=== PATIENT | female | born 1995 | race Caucasian/White ===

== ENCOUNTER 2021-05-17 13:02 | Emergency (ER) | payer OTHER ==
--- OUTSIDE RECORDS SUMMARY | 2021-05-17 13:05 | XMS REPORT | Continuity of Care Document ---
:1995 Author Organization [facility] t Address [facility] [place] [address] Care Team Providers Name Role Phone Pcp, Does Not Have A Primary Care Physician Only, Db Test Attending Clinician Unavailable Taiwo Siegel Attending Clinician Taiwo GRANDA Attending Clinician Unavailable FISH Attending Clinician Unavailable Tenzin DEL ROSARIO Attending Clinician Doctor Unassigned, Name Attending Clinician Unavailable Pcp, Does Not Have A Attending Clinician Provider Temebonie Attending Clinician Unavailable Kimberly Antonio Attending Clinician , Room Attending Clinician Unavailable Alen DEL ROSARIO, F Attending Clinician Arnold CHOWDHURY Attending Clinician Payers Payer Name Policy Type Policy Number Effective Date Expiration Date S ource Problems Condition Condition Condition Status Onset Resolution Last Treating Co mments Source Name Details Category Date Date Treatment Clinician Date History of History of Disease Active 2019- U nivers tetanus, tetanus, 8-28 ity of [place] Medical acellular acellular Bran ch pertussis pertussis booster booster vaccinatio vaccinatio n (Tdap) n (Tdap) High-risk High-risk Disease Active 2018- Uni vers 6-26 ity of 00:00: [place] 00 Medical Branch Obesity Obesity Disease Active 2019-0 Univers affecting affecting 6-26 [place] Pain of Pain of Disease Active 2019 Univers round round 5-21 ity of ligament ligament 00:00: [place] affecting affecting 00 Medi ashley , , Br anch antepartum antepartum Rubella Rubella Disease Active Univers non-immune non-immune 3-26 it y of status, status, 00:00: [place] antepartum antepartum 00 Me dical Branch Maternal Maternal Disease Active Unive rs varicella, varicella, 3-26 it y of non-immune non-immune [place] [facility] [place] Family Family Disease Active 2019 Univers history of history of 3-25 it y of Downs Downs 00:00: [place] syndrome syndrome 00 Medica l Branch Substance Substance Disease Active Overview: Univers abuse abuse 3-25 Formattin ity of affecting affecting 00:00: [place] of this [place] 00 note Medi ashley in first in first might be Bran ch trimester, trimester, different antepartum antepartum from the original. Last used at 8wks of per patient report Family Family Disease Active Univers history of history of 3-25 it y of diabetes diabetes 00:00: [place] mellitus mellitus 00 Medica l Branch Influenza Influenza Disease Active Uni vers vaccinatio vaccinatio 3-25 it y of n declined n declined [place] [facility] [place] History of History of Disease Active 2019 U nivers depression depression 3-25 it y of 00:00: [place] 00 Medical Branch History of History of Disease Active 2019 U nivers anxiety anxiety 3-25 ity of 00:00: [place] 00 Medical Branch Family Family Disease Active 2019 Univers history of history of 3-25 it y of congenital congenital [place] heart heart 00 Medical defect defect Branch Family Family Disease Active 2019 Univers history of history of 3-25 it y of Downs Downs 00:00: [place] syndrome syndrome 00 Medica l Branch Allergies, Adverse Reactions, Alerts Allergy Allergy Status Severity Reaction(s) Onset Inactive Treating Comm ents Source Name Type Date Date Clinician NO KNOWN Drug Active Univers ALLERGIE Class ity of S [facility] Social History Social Habit Start Date Stop Date Quantity Comments Source ASSERTION 2018-05-01 University of 00:00:00 [facility] Exposure to Yes University of SARS-CoV-2 [place] Medical (event) Branch Alcohol intake 2020-09-13 2020-09-13 Current University 00:00:00 00:00:00 non-drinker of [facility] alcohol Branch (finding) Tobacco use and 2018-06-27 2018-06-27 Never used Universit y of exposure 00:00:00 00:00:00 [facility] Sex Assigned At [birth year] Universit y of 00:00:00 00:00:00 [facility] Smoking Status Start Date Stop Date Source Never smoker [facility] Medical Branch Medications Ordered Filled Start Stop Current Ordering Indication Dosage Frequency Signature Comments Components Source Medication Medication Date Date Medication? Clinician (SIG) Name Name Yes Take by Unive rs vit 6-11 mouth. ity of calc,iron,f 18:37: [place] [id number] Medical ( Branch VITAMIN ORAL) Yes Take by Unive rs vit 6-11 mouth. ity of calc,iron,f 18:37: [place] [address] Medical ( Branch VITAMIN ORAL) Yes Take by Unive rs vit 6-11 mouth. ity of calc,iron,f 18:37: [place] [address] Medical ( Branch VITAMIN ORAL) Yes Take by Unive rs vit 6-11 mouth. ity of calc,iron,f 13:37: [place] [address] Medical ( Branch VITAMIN ORAL) Yes Take by Unive rs vit 7-24 mouth. ity of calc,iron,f 18:25: [place] [address] Medical ( Branch VITAMIN ORAL) Yes Take by Unive rs vit 7-24 mouth. ity of calc,iron,f 18:25: [place] [address] Medical ( Branch VITAMIN ORAL) Yes Take by Unive rs vit 7-24 mouth. ity of calc,iron,f 18:25: [place] [address] Medical ( Branch VITAMIN ORAL) Yes Take by Unive rs vit 7-24 mouth. ity of calc,iron,f 18:25: [place] [address] Medical ( Branch VITAMIN ORAL) Yes Take by Unive rs vit 7-24 mouth. ity of calc,iron,f 18:25: [place] olic 00 Medical ( Branch VITAMIN ORAL) 2018- Yes Take by Unive rs vit 7-24 mouth. ity of calc,iron,f 18:25: [place] olic 00 Medical ( Branch VITAMIN ORAL) Yes Take by Unive rs vit 7-24 mouth. ity of calc,iron,f 18:25: [place] olic 00 Medical ( Branch VITAMIN ORAL) Immunizations Ordered Filled Immunization Date Status Comments [facility] e Immunization Name Name TDAP (ADACEL) 2018-10-26 Completed University of VACCINE 00:00:00 [facility] TDAP (ADACEL) 2018-10-26 Completed University of VACCINE 00:00:00 [facility] TDAP (ADACEL) 2018-10-26 Completed University of VACCINE 00:00:00 [facility] TDAP (ADACEL) 2018-10-26 Completed University of VACCINE 00:00:00 [facility] TDAP (ADACEL) 2018-10-26 Completed University of VACCINE 00:00:00 [facility] TDAP (ADACEL) 2018-10-26 Completed University of VACCINE 00:00:00 [facility] TDAP (ADACEL) 2018-10-26 Completed University of VACCINE 00:00:00 [facility] TDAP (ADACEL) 2018-10-26 Completed University of VACCINE 00:00:00 [facility] TDAP (ADACEL) 2018-10-26 Completed University of VACCINE 00:00:00 [facility] TDAP (ADACEL) 2018-10-26 Completed University of VACCINE 00:00:00 [facility] TDAP (ADACEL) 2018-10-26 Completed University of VACCINE 00:00:00 [facility] Vital Signs Vital Name Observation Time Observation Value Comments Source Systolic blood 2020-09-13 18:36:00 127 mm[Hg] Univer sity of pressure [facility] Diastolic blood 2020-09-13 18:36:00 81 mm[Hg] Unive rsity of pressure [facility] Heart rate 2020-09-13 18:36:00 112 /min [facility] Body temperature 2020-09-13 18:36:00 36.5 Altagracia [facility] Respiratory rate 2020-09-13 18:36:00 18 /min [facility] Body height 2020-09-13 18:36:00 165.1 cm [facility] [place] [facility] Body weight 2020-09-13 18:36:00 144.697 kg [facility]i ty [facility] [place] [facility] BMI 2020-09-13 18:36:00 53.08 kg/m2 [facility] [place] [facility] Systolic blood 2018-12-13 20:09:00 136 mm[Hg] Univer sity of pressure [place] [facility] Diastolic blood 2018-12-13 20:09:00 81 mm[Hg] Unive rsity of pressure [place] [facility] Heart rate 2018-12-13 20:09:00 97 /min [facility] [place] [facility] Body temperature 2018-12-13 20:09:00 36.72 Altagracia Univ ersity [facility] [place] [facility] Respiratory rate 2018-12-13 20:09:00 18 /min Univ ers[facility] [place] [facility] Body height 2018-12-13 20:09:00 165.1 cm [facility] [place] [facility] Body weight 2018-12-13 20:09:00 99.791 kg [facility] [place] [facility] BMI 2018-12-13 20:09:00 36.61 kg/m2 [facility] [place] [facility] Systolic blood 2018-11-29 17:55:00 132 mm[Hg] Univer sity of pressure [place] [facility] Diastolic blood 2018-11-29 17:55:00 83 mm[Hg] Unive rsity of pressure [facility] Heart rate 2018-11-29 17:55:00 78 /min [facility] [place] [facility] Body temperature 2018-11-29 17:55:00 36.78 Altagracia Univ ers[facility] [place] [facility] Respiratory rate 2018-11-29 17:55:00 18 /min Univ ers[facility] [place] [facility] Body height 2018-11-29 17:55:00 165.1 cm [facility] [place] [facility] Body weight 2018-11-29 17:55:00 99.02 kg [facility] [place] [facility] BMI 2018-11-29 17:55:00 36.33 kg/m2 [facility] [place] [facility] Systolic blood 2018-11-14 20:49:00 120 mm[Hg] Univer sity of pressure [place] [facility] Diastolic blood 2018-11-14 20:49:00 79 mm[Hg] Unive rsity of pressure [place] [facility] Heart rate 2018-11-14 20:49:00 99 /min [facility] Body temperature 2018-11-14 20:49:00 36.83 Altagracia [facility] Respiratory rate 2018-11-14 20:49:00 20 /min [facility] Body weight 2018-11-14 20:49:00 97.07 kg [facility] BMI 2018-11-14 20:49:00 35.61 kg/m2 [facility] Oxygen saturation in 2018-11-14 20:49:00 99 /min [facility] Arterial blood by [facility] Pulse oximetry [place] Procedures Procedure Date / Time Performing Clinician Source Performed ASSIGNMENT OF BENEFITS 2020-09-13 18:07:52 Doctor Unassigned, No [facility] AUTHORIZATION TO RELEASE 2018-12-13 05:01:00 Doctor Unassigned, No [facility] PHI TO [facility] POCT URINALYSIS 2018-12-13 00:00:[address] [facility] HIV 1/2 AG-AB WITH 2018-11-29 20:51:00 Sofiya Barrett [facility] REFLEX [facility] GALV ONLY - SYPHILIS 2018-11-29 20:51:00 Sofiya Barrett [facility] IGG/IGM [facility] GC & CHLAMYDIA AMPLIFIED 2018-11-29 18:14:00 [facility] Encounters Start End Encounter Admission Attending Care Care Encounter Source Date/Time Date/Time Type Type Clinicians Facility Department ID 2021-01-01 2021-01-01 Laboratory Only, Ang Db Test [facility] [id number] Univers 16:19:20 16:34:20 Only Ryan Granda [facility] [id number] [facility] [id number] Juan as Huan?Blea [id number] [address] Medical Office Building 2021-01-01 2021-01-01 Outpatient R [facility] [id number] Univers 16:30:00 16:30:00 [id number] [facility] 2021-01-01 2021-01-01 Outpatient R KALEE [facility] [id number] Univers 16:30:00 16:30:00 RYAN ity o f [facility] 2020-12-06 2020-12-06 Outpatient R WILY HO [facility] [id number] Univers 13:00:00 13:00:00 [id number] ity [facility] 2020-12-06 2020-12-06 Outpatient R WILY HO [facility] [id number] Univers 13:00:00 13:00:00 ity [facility] 2020-09-13 2020-09-13 Office Tenzin [facility] [id number] Univers 13:09:25 13:58:40 Visit Chris 350.1.13.10 i [facility] 4.2.7.2.686 Osmany s Professio [id number] Ak dical nal [address] [place] [address] 2020-09-13 2020-09-13 Outpatient R WILY HO [facility] [id number] Univers 13:00:00 13:00:00 [id number] ity [facility] 2020-09-13 2020-09-13 Outpatient R TENZIN WILY [facility] [id number] Univers 13:00:00 13:00:00 ity [facility] 2020-09-13 2020-09-13 Orders Doctor MIMI [id number] Univers 00:00:00 00:00:00 Only Unassigned, UNA [id number] ity of [place] [facility] 4.2.7.2.686 Juan as [id number] [address] 2020-09-06 2020-09-06 Outpatient R WILY HO [facility] [id number] Univers 13:00:00 13:00:00 [id number] ity [facility] 2019-12-22 2019-12-22 Telephone Pcp, [facility] [id number] Univers 00:00:00 00:00:00 Patient [employer] [id number] it y of Does Not [facility] 4.2.7.2.686 [place] MATERNAL [id number] Med ical & CHILD 107 [facility] 2018-12-13 2018-12-13 Routine Provider, Sandra-Rmchp Temp [place] 1 .[id number] Univers 14:27:15 15:39:33 OlenadavidFernanda arevalo [employer] 350.1.13. 10 ity of Visit [facility] 4.2.7.2.686 Juan as MATERNAL [id number] [facility] & CHILD [address] [place] [address] 2018-12-13 2018-12-13 Mixer Pigment 1, Sandra-Mfm Room [facility] 1.2. [id number] Univers 10:55:51 11:29:41 Visit Del Lowry [employer] [id number] ity of [facility] 4.2.7.2.686 Juan as MATERNAL [id number] [facility] & CHILD 369 [facility] 2018-12-13 2018-12-13 Orders Doctor MIMI [id number] Univers 00:00:00 00:00:00 Only Unassigned, UNA 350.1.13.10 ity of [place] [facility] 4.2.7.2.686 Juan as [id number] [address] 2018-11-29 2018-11-29 [facility] [id number] [facility] 12:40:21 13:22:31 Sofiya [employer] 350.1.13.10 i ty of Visit [facility] 4.2.7.2.686 Juan as MATERNAL [id number] [address] 2018-11-14 2018-11-14 [facility] [id number] Univers 14:56:07 15:11:07 Sofiya [employer] 350.1.13.10 i ty of Visit [facility] 4.2.7.2.686 Juan as MATERNAL [id number] [address] Results Test Description Test Time Test Comments Results Result Comments Source POCT URINALYSIS W SPECIFIC GRAVITY 2018-12-13 20:15:00 Test Item Value Reference Range Interpretation Comme nts POCT U SP GRAV (test code = 3255) NA 1.005-1.025 POCT PH U (test code = 3254) NA 5-8 POCT U LEUK EST (test code = 3263) NA Negative - Negative POCT U NIT (test code = 3262) NA Negative - Negative POCT U PROT (test code = 3259) NEG Negative - Negative POCT U GLU (test code = 3256) NORMAL Negative - Negative POCT U KETONE (test code = 3258) NA Negative - Negative POCT U UROBILI (test code = 3260) NA 0.2-1 POCT U BILI (test code = 3261) NA Negative - Negative POCT U BLD (test code = 3257) NA Negative - Negative POCT U COLOR (test code = 3266) POCT U APPEAR (test code = 3267) [facility] CHLAMYDIA AMPLIFIED [id number] 18:28:00 Test Item Value Reference Range Interpretation Comments Lab Interpretation (test code = Normal 43490-8) [facility] SY[facility]IL[facility] [id number] 14:37:00 Test Item Value Reference Range Interpretation Comments Syphilis IgG/IgM (test Non-reactive Non-reactive code = 95789-8) BEBETO (test code = BEBETO) Non-reactive - No serologic evidence of T. pallidum infection. Cannot exclude incubating or early syphilis. Submit a second specimen in 2-4 weeks if syphilis is clinically suspected.Equivocal - Further testing to follow.Reactive - Further testing to follow. Lab Interpretation (test Normal code = 54348-1) [facility] AG-AB WITH [id number] 03:12:00 Test Item Value Reference Range Interpretation Comments HIV Negative Negative Semi-quantitative (test code = 84246-1) BEBETO (test code = Non-reactive for HIV-1 BEBETO) antigen and HIV-1/HIV-2 antibodies.?No laboratory evidence of HIV infection.?Repeat in 2-4 weeks if acute HIV infection is suspected. [facility]
[2021-05-17] MEDS ORDERED: KETOROLAC 30 MG/ML INJ ONE (14:56)
--- NOTE | 2021-05-17 16:01 | ER ---
Nurse's Notes [facility] Name: Isatu Mcgill Age: 25 yrs Sex: Female : 1995 Arrival Date: 05/17/2021 Time: 13:20 Bed 10 Private MD: Diagnosis: Low back pain Presentation: 05/17 13:25 Chief complaint: Patient states: Low back pain x 1 week, worse on L side, radiates to L ph hip and thigh, denies known injury, took 800 mg ibuprofen this morning w/ some relief. Coronavirus screen: At this time, the client does not indicate any symptoms associated with coronavirus-19. Ebola Screen: No symptoms or risks identified at this time. Initial Sepsis Screen: Does the patient meet any 2 criteria? No. Patient's initial sepsis screen is negative. Does the patient have a suspected source of infection? No. Patient's initial sepsis screen is negative. Risk Assessment: Do you want to hurt yourself or someone else? Patient reports no desire to harm self or others. Onset of symptoms was May 17, 2021. 13:25 Method Of Arrival: Ambulatory ph 13:25 Acuity: LUZ 4 ph DOG POUND ATTENDANT: 16:18 LMP N/A - iw Historical: - Allergies: 13:26 No Known Allergies; ph - PSHx: 13:26 section; ph - Immunization history:: Adult Immunizations unknown. - Social history:: Smoking status: Patient denies any tobacco usage or history of. Screenin:28 Abuse screen: Denies threats or abuse. Denies injuries from another. Nutritional ph screening: No deficits noted. Tuberculosis screening: No symptoms or risk factors identified. Fall Risk None identified. Assessment: 14:27 General: Appears in no apparent distress. comfortable, obese, well groomed, Behavior is ph calm, cooperative, appropriate for age, Denies fever, feeling ill. Pain: Complains of pain in lumbar area Pain radiates to left leg. Neuro: Level of Consciousness is awake, alert, obeys commands, Oriented to person, place, time, situation. Cardiovascular: Capillary refill < 3 seconds in bilateral fingers Patient's skin is warm and dry. Respiratory: No deficits noted. Derm: Skin is intact, is healthy with good turgor, Skin is pink, warm \T\ dry. Musculoskeletal: Circulation, motion, and sensation intact. Range of motion: intact in all extremities. Vital Signs: 13:25 BP 144 / 90; Pulse 93; Resp 18; Temp 97.0; Pulse Ox 100% on R/A; Weight 136.08 kg; ph Height 5 ft. 5 in. (165.10 cm); 16:00 BP 137 / 86; Pulse 82; Resp 18; Temp 97.5; Pulse Ox 100% on R/A; ph 13:25 Body Mass Index 49.92 (136.08 kg, 165.10 cm) ph ED Course: 13:20 Patient arrived in ED. mr 13:26 Triage completed. ph 13:26 Arm band placed on Patient placed in waiting room, Patient notified of wait time. ph 13:35 Iglesia Wu PA is PHCP. m 13:36 Satish Grajeda MD is Attending Physician. [facility] 14:27 Sherlyn Malin, RN is Primary Nurse. ph 14:28 Patient has correct armband on for positive identification. Door closed. Noise ph minimized. 16:18 No provider procedures requiring assistance completed. Patient did not have IV access iw during this emergency room visit. Administered Medications: 15:01 Drug: Ketorolac 30 mg Route: IM; Site: right deltoid; ph 16:00 Follow up: Response: No adverse reaction iw Point of Care Testing: Blood Glucose: 15:01 Blood Glucose: 99 mg/dL; ph Ranges: Outcome: 16:01 Discharge ordered by . [facility] 16:18 Discharged to home ambulatory, with family. iw 16:18 Condition: good 16:18 Discharge instructions given to patient, Instructed on discharge instructions, follow up and referral plans. medication usage, Demonstrated understanding of instructions, follow-up care, medications, Prescriptions given X 3. 16:18 Patient left the ED. iw Signatures: Iglesia Wu PA PA [facility] Irina Sanchez Lesly Crenshaw, MALATHI RN iw Sherlyn Malin, MALATHI RN ph
--- NOTE | 2021-05-17 16:01 | EDPHYS ---
Physician Documentation [facility] Name: Isatu Mcgill Age: 25 yrs Sex: Female : 1995 Arrival Date: 05/17/2021 Time: 13:20 Bed 10 Private MD: ED Physician Satish Grajeda HPI: 05/17 14:44 This 25 yrs old Female presents to ER via Ambulatory with complaints of Back Pain. jmm 14:44 The patient presents with pain that is acute. Onset: The symptoms/episode jmm began/occurred gradually, 1 week(s) ago. The pain radiates to the left lower back and left gluteus narciso. Associated signs and symptoms: Pertinent negatives: abdominal pain, chest pain, constipation, dysuria, fever, hematuria, incontinence, nausea, numbness, tingling, urinary retention, vomiting, weakness. Modifying factors: The patient symptoms are alleviated by nothing, the patient symptoms are aggravated by any movement. It is unknown whether or not the patient has had similar symptoms in the past. [employer]: 16:18 LMP N/A - iw Historical: - Allergies: 13:26 No Known Allergies; ph - PSHx: 13:26 section; ph - Immunization history:: Adult Immunizations unknown. - Social history:: Smoking status: Patient denies any tobacco usage or history of. ROS: 14:44 Constitutional: Negative for fever, chills, and weight loss, Cardiovascular: Negative jmm for chest pain, palpitations, and edema, Respiratory: Negative for shortness of breath, cough, wheezing, and pleuritic chest pain. 14:44 Back: Positive for pain with movement. 14:44 All other systems are negative. Exam: 14:44 Constitutional: This is a well developed, well nourished patient who is awake, alert, jmm and in no acute distress. Head/Face: atraumatic. Eyes: EOMI, no conjunctival erythema appreciated ENT: Moist Mucus Membranes Neck: Trachea midline, Supple Chest/axilla: Normal chest wall appearance and motion. Cardiovascular: Regular rate and rhythm. No edema appreciated Respiratory: Normal respirations, no respiratory distress appreciated Abdomen/GI: Non distended, soft 14:44 Back: Left lower back pain on palpation, no vertebral point tenderness appreciated. 14:44 Musculoskeletal/extremity: ROM: intact in all extremities. 14:44 Skin: Appearance: Color: normal in color. 14:44 Neuro: Orientation: is normal, Mentation: is normal, Memory: is normal. 14:44 Psych: Behavior/mood is pleasant, cooperative. Vital Signs: 13:25 BP 144 / 90; Pulse 93; Resp 18; Temp 97.0; Pulse Ox 100% on R/A; Weight 136.08 kg; ph Height 5 ft. 5 in. (165.10 cm); 16:00 BP 137 / 86; Pulse 82; Resp 18; Temp 97.5; Pulse Ox 100% on R/A; ph 13:25 Body Mass Index 49.92 (136.08 kg, 165.10 cm) ph MDM: 14:44 Patient medically screened. [facility] 16:00 Data reviewed: vital signs, nurses notes. Counseling: I had a detailed discussion with ajith the patient and/or guardian regarding: the historical points, exam findings, and any diagnostic results supporting the discharge/admit diagnosis, the need for outpatient follow up, to return to the emergency department if symptoms worsen or persist or if there are any questions or concerns that arise at home. ED course: Patient is alert and nontoxic in appearance in the ED. I do not suspect cord compression or cauda equina or spinal abscess. Patient be treated with analgesics and muscle relaxers and steroids. Patient otherwise given strict return precautions. Patient understood agrees plan of care. 05/17 14:44 Order name: Fingerstick Glucose; Complete Time: 15:01 [facility] Administered Medications: 15:01 Drug: Ketorolac 30 mg Route: IM; Site: right deltoid; ph 16:00 Follow up: Response: No adverse reaction iw Point of Care Testing: Blood Glucose: 15:01 Blood Glucose: 99 mg/dL; ph Ranges: Critical Glucose Levels:Adult <50 mg/dl or >400 mg/dl <40 mg/dl or >180 mg/dl Disposition Summary: 05/17/21 16:01 Discharge Ordered Location: Home ajith Condition: Stable ajith Diagnosis - Low back pain ajith Followup: ajith - With: Private Physician - When: 2 - 3 days - Reason: Recheck today's complaints, Continuance of care, Re-evaluation by your physician Discharge Instructions: - Discharge Summary Sheet ajith - Acute Back Pain, Adult ajith Forms: - Medication Reconciliation Form ajith - Thank You Letter jmm - Antibiotic Education jmm - Prescription Opioid Use jmm - Work release form iw Prescriptions: - Prednisone 20 mg Oral Tablet - take 3 tablets by ORAL route once daily for 5 days; 15 tablet; Refills: 0, [facility] Product Selection Permitted - Zanaflex 4 mg Oral Tablet - take 1 tablet by ORAL route every 8 hours As needed; 20 tablet; Refills: 0, [facility] Product Selection Permitted - Diclofenac Sodium 75 mg Oral Tablet Sustained Release - take 1 tablet by ORAL route 2 times per day; 30 tablet; Refills: 0, Product [facility] Selection Permitted Addendum: 05/19/2021 06:27 Co-signature as Attending Physician, Satish Grajeda MD I agree with the assessment and k dr plan of care. Signatures: Satish Grajeda MD MD kdr Mickail, Joel, PA PA jmm Hall, Patricia RN RN Lesly Maher RN
[2021-05-17 16:31] VITALS: BP 144/90; TEMP 97; O2SAT 100
== END 2021-05-17 16:18 | disposition home or self-care (01) ==
LOC: ER 13:02
DX: M54.50 Low back pain, unspecified (principal)
CPT/HCPCS: 82947; 96372; 99283